=== PATIENT | female | born 1975 | race Caucasian/White ===

== ENCOUNTER → 2018-11-21 12:11 | Outpatient (CLI) | payer BC, SELFPAY ==
[2018-11-21 14:55] LABS: Absolute Lymphocyte Count 2.03 X10^3/uL (0.83-4.51); Absolute Neutrophil Count 3.3 X10^3/uL (2.0-7.7); Basophil# 0.03 X10^3/uL; Basophil% 0.5 % (0-1); Eosinophil# 0.06 X10^3/uL; Hemoglobin 12.1 g/dL (12.0-15.0); Lymphocyte # 2.03 X10^3/ul (4.0); Mean Corp Hgb Conc 32.7 g/dL (32-36); Mean Corpuscular Hgb 29.7 pg (27.0-32.0); Mean Corpuscular Volume 90.7 fL (81-99); Mean Platelet Vol. 10.9 fl (6.2-12.0); Monocyte% 6.9 % (0-10); NRBC Flagged by Analyzer 0 % (0-5); Neutrophil # 3.27 X10^3/uL (2.7-7.7); Neutrophil % 56.4 % (47-70); Platelet Count 342 K/mm3 (150-450); RBC Distribution Width CV 12.4 % (11.6-14.6); RBC Distribution Width SD 41.3 fl (35.1-43.9); Red Blood Count 4.08 M/mm3 (4.2-5.4); White Blood Count 5.8 K/mm3 (4.4-11.0)
[2018-11-21 15:22] LABS: AST(SGOT) 13 U/L (15-37); Alanine Aminotransfer ALT/SGPT 25 U/L (13-56); Albumin, Serum 3.7 g/dL (3.2-5.0); Alkaline Phosphatase 66 U/L (45-117); Anion Gap 5 (5-15); BUN 13 mg/dL (7-18); BUN/Creat Ratio 14.4 RATIO (10-20); Calcium,Total 8.5 mg/dL (8.5-10.1); Chloride 108 mmol/L (98-107); EST Glomerular Filtration Rate 72 mL/min (>60); Est Glom Filt Rate - Afr Amer 87 mL/min (>60); Globulin 3.6 g/dL (2.2-4.2); Glucose 71 mg/dL (74-106); Potassium 3.8 mmol/L (3.5-5.1); Protein, Total 7.3 g/dL (6.4-8.2); Sodium Level 140 mmol/L (136-145); Thyroid Stim Hormone (TSH) 0.81 uIU/mL (0.358-3.74)
== END ==
PROVIDERS: Family Provider Family Medicine; PCP Family Medicine; Referring Provider Family Medicine; Visit Provider Family Medicine
DX: N92.6 Irregular menstruation, unspecified (principal)
CPT/HCPCS: 36415; 80053; 84443; 85025

== ENCOUNTER → 2018-11-26 14:35 | Outpatient (CLI) | payer BC, SELFPAY ==
--- NOTE | 2018-11-26 14:53 | US_ITS ---
STUDY: ULTRASOUND TRANSVAGINAL CLINICAL: Female, 43 years old. Irregular bleeding. TECHNIQUE: Transvaginal COMPARISON: None. FINDINGS: Uterus is anteverted and midline, measuring 8.5 x 5.8 x 7.1 cm There are multiple fibroids. There is a 2 x 1.9 x 1.9 cm fibroid in the right posterior fundus which appears to contact the posterior endometrium. There is a 3.1 x 2.0 x 2.6 cm exophytic fibroid off the left posterior lower uterine wall. There is also a 1.1 x 1.2 x 1.3 cm hypoechoic cysts of the mucosal fibroid in the left anterior fundal wall. Normal endometrial thickness measuring 19 mm. Endometrium is hyperechoic. There is a 0.8 cm diameter mass in the right lower uterine segment. There are no endometrial masses, and there is no fluid in the endometrial cavity. Normal uterine cervix. Normal right ovary, measuring 2.9 x 2.0 x 1.7 cm. There is a 1.5 x 1.3 x 1.4 cm simple cyst versus dominant follicle. Normal left ovary, measuring 2.1 x 1.9 x 1.0 cm. There are multiple follicles without a dominant cyst. There is no free fluid in the pelvis. Polycystic ovary disease: No. US/Transvaginal Non- IMPRESSION: 1. Fibroid uterus. At least 2 of the fibroids appears submucosal. 2. Thickened endometrium with what appears to be a small mass in the lower endometrial cavity. 3. No dominant follicle versus small cyst in the right ovary. The left ovary is unremarkable. Electronically Signed: Alvarado Dixon DO at 16:02 EDT Tel [phone], Service support ,
== END ==
LOC: US 14:37
PROVIDERS: Family Provider Family Medicine; PCP Family Medicine; Referring Provider Family Medicine; Visit Provider Family Medicine
DX: N92.6 Irregular menstruation, unspecified (principal)
CPT/HCPCS: 76830; 93976

== ENCOUNTER → 2020-07-23 | Outpatient (CLI) | payer BC, SELFPAY ==
[2020-07-23 11:16] VITALS: BMI 31.8
[2020-07-28 18:52] LABS: HPV APTIMA, High Risk Negative (Negative)
== END | disposition home or self-care (01) ==
LOC: LABSPEC 12:15
PROVIDERS: PCP Family Medicine; Referring Provider Nurse Practitioner Women's Health; Visit Provider Nurse Practitioner Women's Health
DX: Z12.4 Encounter for screening for malignant neoplasm of cervix (principal)
CPT/HCPCS: 87624; 88175; G0145

== ENCOUNTER → 2020-12-29 17:00 | Outpatient (CLI) | payer BC, SELFPAY ==
[2020-07-23 11:16] VITALS: BMI 31.8
--- NOTE | 2020-12-29 16:30 | BI_ITS ---
MAMMOGRAPHY - BILATERAL SCREENING REASON FOR EXAM: Female, 45 years old. Routine annual screening examination. PERTINENT HISTORY: Non-contributory. TECHNIQUE: Digital bilateral breast carlos (3D mammographic acquisition) in the CC and MLO projections. 2-D mediolateral oblique (MLO) and craniocaudad (CC) views of both breasts were obtained. CAD: Full Field Digital Mammography with Computer Added Detection was performed. COMPARISON: Comparison is made with prior outside examination dated 07/24/2018. FINDINGS: Breast Composition: The breasts are heterogeneously dense, which may obscure small masses. There is a 9 mm x 9 mm well-defined nodule in the upper lateral aspect of the left breast. There is also evidence of a 6.3 mm x 6 mm well-defined nodule in the upper medial aspect of the left breast. Correlation with ultrasound is recommended. Stable small benign-appearing bilateral axillary lymph nodes. No other significant abnormalities are identified. BI/SCRN MAMM (CAD)W/CARLOS BILAT IMPRESSION: There are 2 subcentimeter well-defined nodules in the upper lateral and upper medial aspects of the left breast as described. Correlation with ultrasound is recommended. ASSESSMENT CATEGORY: BIRADS Category 0: Incomplete. Need additional imaging evaluation. A letter regarding these results will be sent to the patient by the facility within 30 days. Approximately 10% of breast cancers are not detected by mammography. A normal mammogram should not delay biopsy of a clinically suspicious abnormality. [id number] Electronically Signed: Jeremi Guidry MD at 8:49 EDT , Service support ,
== END ==
PROVIDERS: PCP Family Medicine; Referring Provider Nurse Practitioner Women's Health; Visit Provider Nurse Practitioner Women's Health
DX: Z12.31 Encounter for screening mammogram for malignant neoplasm of breast (principal)
CPT/HCPCS: 77063; 77067

== ENCOUNTER → 2020-12-31 15:26 | Outpatient (CLI) | payer BC, SELFPAY ==
--- NOTE | 2020-12-31 15:32 | US_ITS ---
STUDY: ULTRASOUND BREAST - LEFT REASON FOR EXAM: Female, 45 years old. Abnormal screening mammogram. TECHNIQUE: Axial and longitudinal images of the LEFT breast were performed with a high resolution ultrasound transducer. # OF IMAGES: 15 COMPARISON: Comparison is made with prior mammogram dated 12/29/2020. FINDINGS: LEFT Breast: There is an 8 mm x 8 mm x 7 mm cyst at the 2 o''clock position the breast at 4 cm from nipple. This also evidence of a 9 mm x 9 mm x 4 mm cyst at the 3 o''clock position of the breast at 4 cm from nipple. US/Breast Limited Unilateral IMPRESSION: The mammographic abnormality corresponds to 2 subcentimeter cysts. ASSESSMENT CATEGORY: BIRADS Category 2: Benign. A letter regarding these results will be sent to the patient by the facility within 30 days. Electronically Signed: Jeremi Guidry MD at 9:40 EDT , Service support ,
== END ==
PROVIDERS: PCP Family Medicine; Referring Provider Nurse Practitioner Women's Health; Visit Provider Nurse Practitioner Women's Health
DX: R92.2 Inconclusive mammogram (principal)
CPT/HCPCS: 76642

== ENCOUNTER → 2021-01-01 14:20 | Outpatient (CLI) | payer BC, SELFPAY ==
[2021-01-01 17:35] LABS: Absolute Neutrophil Count 4.1 X10^3/uL (2.0-7.7); Basophil# 0.03 X10^3/uL; Basophil% 0.4 % (0-1); Eosinophil# 0.06 X10^3/uL; Eosinophils% 0.8 % (0-5); Hematocrit 38.5 % (37-47); Lymphocyte % 35.1 % (19-41); Mean Corp Hgb Conc 33.8 g/dL (32-36); Mean Corpuscular Hgb 30.4 pg (27.0-32.0); Mean Corpuscular Volume 90.2 fL (81-99); Mean Platelet Vol. 10.9 fl (6.2-12.0); Monocyte# 0.43 X10^3/uL; NRBC Flagged by Analyzer 0 % (0-5); Neutrophil % 57.6 % (47-70); Platelet Count 320 K/mm3 (150-450); RBC Distribution Width CV 12.3 % (11.6-14.6); Red Blood Count 4.27 M/mm3 (4.2-5.4); White Blood Count 7.1 K/mm3 (4.4-11.0)
[2021-01-01 17:52] LABS: ALB/GLOB Ratio 1.1 RATIO (0.9-2.4); AST(SGOT) 16 U/L (15-37); Alanine Aminotransfer ALT/SGPT 28 U/L (13-56); Alkaline Phosphatase 64 U/L (45-117); Anion Gap 7 (5-15); BUN 14 mg/dL (7-18); BUN/Creat Ratio 15.7 RATIO (10-20); Calcium,Total 9.3 mg/dL (8.5-10.1); Chloride 104 mmol/L (98-107); Creatinine, Serum 0.89 mg/dL (0.55-1.02); EST Glomerular Filtration Rate 72 mL/min (>60); Est Glom Filt Rate - Afr Amer 88 mL/min (>60); Globulin 3.5 g/dL (2.2-4.2); Glucose 90 mg/dL (74-106); Magnesium 2.1 mg/dL (1.6-2.6); Potassium 3.4 mmol/L (3.5-5.1); Protein, Total 7.5 g/dL (6.4-8.2); Sodium Level 138 mmol/L (136-145); Thyroid Stim Hormone (TSH) 1.04 uIU/mL (0.358-3.74)
== END ==
PROVIDERS: PCP Family Medicine; Referring Provider Family Medicine; Visit Provider Family Medicine
DX: R00.2 Palpitations (principal)
CPT/HCPCS: 36415; 80053; 83735; 84443; 85025

== ENCOUNTER 2021-05-19 09:45 | Outpatient (CLI) | payer BC, SELFPAY ==
--- NOTE | 2021-05-19 09:49 | ECHOD_ITS ---
Reason For Study: PALPITATIONS Procedure This was a 2D Doppler, Color Flow transthoracic echocardiogram. Exam performed in department. Left Ventricle Normal LV size. Left ventricular systolic function is normal. The estimated ejection fraction is 60 %. Normal diastology for age. No regional wall motion abnormalities noted. Right Ventricle Normal RV size. Normal systolic function. Atria Normal left atrium. Normal right atrium. Mitral Valve Normal mitral valve. Tricuspid Valve Normal tricuspid valve. Aortic Valve Normal aortic valve. Trisinus/trileaflet aortic valve. Pulmonic Valve Normal pulmonic valve. Great Vessels Normal aortic root. The pulmonary artery is normal size. Normal inferior vena cava. Pericardium/Pleural No pericardial effusion. MMode/2D Measurements & Calculations LVIDd: 4.9 cm IVSd: 0.94 cm Ao root diam: 3.2 cm LVIDs: 3.2 cm LVPWd: 1.1 cm RVDd: 3.1 cm FS: 35.0 % LAV(MOD-bp): 31.2 ml LVAd ap4: 34.6 cm2 LVAd ap2: 27.4 cm2 LAV(MOD-bp) Indexed: 15.8 ml/m2 LVLd ap4: 9.1 cm LVLd ap2: 7.6 cm LAV(MOD-sp2): 34.8 ml EDV(MOD-sp4): 108.1 ml EDV(MOD-sp2): 81.6 ml LAV(MOD-sp4): 28.3 ml EDV(sp4-el): 111.3 ml EDV(sp2-el): 84.0 ml LVAs ap4: 18.5 cm2 LVAs ap2: 15.4 cm2 LVLs ap4: 7.0 cm LVLs ap2: 6.6 cm ESV(MOD-sp4): 42.0 ml ESV(MOD-sp2): 31.0 ml ESV(sp4-el): 41.6 ml ESV(sp2-el): 30.5 ml EF(MOD-sp4): 61.1 % EF(MOD-sp2): 62.0 % EF(sp4-el): 62.7 % SV(MOD-sp4): 66.1 ml SV(MOD-sp2): 50.6 ml SV(sp4-el): 69.8 ml LA dimension(2D): 3.1 cm LA A4 area: 12.6 cm2 Time Measurements MV dec time: 0.21 sec Doppler Measurements & Calculations MV E max yao: 69.5 cm/sec Lat Peak E' Yao: 7.9 cm/sec Med Peak E' Yao: 8.8 cm/sec MV A max yao: 53.0 cm/sec E/E' lat: 8.8 E/E' med: 7.9 MV E/A: 1.3 Ao V2 max: 103.8 cm/sec LV V1 max: 82.4 cm/sec PA V2 max: 95.2 cm/sec Ao max P.3 mmHg LV V1 max P.7 mmHg ECHO/Echo Complete Interpretation Summary Normal LV size. Left ventricular systolic function is normal. The estimated ejection fraction is 60 %. Structurally normal valves. Ordering Physician: Madeline Christensen Referring Physician: Madeline Christensen Performed By: Marisol Wang, GIANLUCA, RVT
== END 2021-05-19 23:59 | disposition home or self-care (01) ==
LOC: CVS 09:48
PROVIDERS: PCP Family Medicine; Referring Provider Family Medicine; Visit Provider Family Medicine
DX: R00.2 Palpitations (principal)
CPT/HCPCS: 93306

== ENCOUNTER 2021-06-29 11:01 | Outpatient (CLI) | payer BC, SELFPAY | END 2021-06-29 23:59 | disposition home or self-care (01) | LOC: PSN 11:03 | PROVIDERS: PCP Family Medicine; Referring Provider Internal Medicine Cardiovascular Disease; Visit Provider Internal Medicine Cardiovascular Disease | DX: R00.2 Palpitations (principal) | CPT/HCPCS: 93225; 93226 ==

== ENCOUNTER → 2021-10-15 | Outpatient (CLI) | payer BC, SELFPAY ==
--- NOTE | 2021-10-15 16:22 | US_ITS ---
STUDY: ULTRASOUND OF THE FEMALE PELVIS - COMPLETE REASON FOR EXAM: Female, 46 years old. menorrhagia TECHNIQUE: Endovaginal. Transvaginal US was obtained to better visualized the ovaries. COMPARISON: 11.26.18 FINDINGS: The uterus is retroverted and is in a midline position. The uterus measures 9.3 x 4.7 cm. Normal uterine cervix. The endometrium is enlarged in thickness, and is fluid distended. There is demonstrated endometrial mass. This measures 12 x 12 mm. Fibroid uterus. These measure 28 x 31 mm, 19 x 17 mm, 21 x 18 mm, 31 x 30 mm, 18 x 20 mm and 29 x 22 mm. I.U.D. - The patient does not have an I.U.D. The right ovary is visualized. The right ovary measures 4 cm. Cyst measures 23 mm. There is no visualized right adnexal mass or complex lesion. There is normal arterial and normal venous vascularity. The left ovary is visualized. The left ovary measures 2.8 cm. There is no left ovarian cyst or ovarian mass. There is no visualized left adnexal mass or complex lesion. There is normal arterial and normal venous vascularity. There is no fluid in the cul-de-sac. Urinary bladder volume is (in cc) 486. US/Pelvic (Non ) IMPRESSION: Fibroid uterus. There is endometrial mass with diffuse endometrial thickening. Direct visualization is recommended to evaluate the underlying mass. Electronically Signed: Vinh Dee MD at 20:17 EDT ,
--- NOTE | 2021-10-15 16:22 | US_ITS ---
STUDY: ULTRASOUND OF THE FEMALE PELVIS - COMPLETE REASON FOR EXAM: Female, 46 years old. menorrhagia TECHNIQUE: Endovaginal. Transvaginal US was obtained to better visualized the ovaries. COMPARISON: 11.26.18 FINDINGS: The uterus is retroverted and is in a midline position. The uterus measures 9.3 x 4.7 cm. Normal uterine cervix. The endometrium is enlarged in thickness, and is fluid distended. There is demonstrated endometrial mass. This measures 12 x 12 mm. Fibroid uterus. These measure 28 x 31 mm, 19 x 17 mm, 21 x 18 mm, 31 x 30 mm, 18 x 20 mm and 29 x 22 mm. I.U.D. - The patient does not have an I.U.D. The right ovary is visualized. The right ovary measures 4 cm. Cyst measures 23 mm. There is no visualized right adnexal mass or complex lesion. There is normal arterial and normal venous vascularity. The left ovary is visualized. The left ovary measures 2.8 cm. There is no left ovarian cyst or ovarian mass. There is no visualized left adnexal mass or complex lesion. There is normal arterial and normal venous vascularity. There is no fluid in the cul-de-sac. Urinary bladder volume is (in cc) 486. US/Transvaginal Non- IMPRESSION: Fibroid uterus. There is endometrial mass with diffuse endometrial thickening. Direct visualization is recommended to evaluate the underlying mass. Electronically Signed: Vinh Dee MD at 20:17 EDT ,
== END | disposition home or self-care (01) ==
LOC: US 16:20
PROVIDERS: PCP Family Medicine; Referring Provider Nurse Practitioner Women's Health; Visit Provider Nurse Practitioner Women's Health
DX: D25.9 Leiomyoma of uterus, unspecified (principal); N92.1 Excessive and frequent menstruation with irregular cycle
CPT/HCPCS: 76830; 76856

== ENCOUNTER → 2021-10-20 | Outpatient (CLI) | payer BC, SELFPAY ==
--- NOTE | 2021-10-20 13:15 | EMB_PTH ---
PATIENT: PETER SERRANO LOC: [facility] U#:[id number] AGE/SX: 46/F ROOM: RE10/20/[address]: AUBREY Oglesby : 1975 BED: DIS: 10/20/2021 SPEC #: [id number] RECD: 10/20/21 14:50 STATUS: NADEEM JENNIFER #: [id number] JIMBO: 10/20/21 13:[address]: Arabella Vail NP DEPT: SURGICAL PATHOLOGY RECD BY: Trina Maloney ENTERED: 10/21/21 07:46 SP TYPE: ENDOM BX/C MARK DR: Madeline Christensen MD Tissues: Endometrium, NOS Procedures: Surgery Specimen Level IV HEADER OPERATION: Endometrial biopsy PRE-OP DIAGNOSIS: Abnormal uterine bleeding TISSUE SUBMITTED: Endometrial biopsy MICROSCOPIC DIAGNOSIS Endometrial biopsy: Superficial fragments of benign endometrial tissue and blood clots. See comment. LINDA:mark 10/22/2021 COMMENT The specimen predominantly consists of blood clots with scant fragments of superficial benign endometrial tissue. Clinical correlation and appropriate follow up are necessary. Re-biopsy is suggested if clinically indicated. MICROSCOPIC DESCRIPTION Slides are reviewed. GROSS DESCRIPTION Received is one container labeled with the patient's name and not further designated. The specimen consists of multiple fragments of blood clot mixed with hemorrhagic soft tissue that in aggregate measure 5 x 3 x 1 cm. The entire specimen is submitted in six cassettes. / SJ:rg 10/21/2021 TC:5 CPT: 40234
== END | disposition home or self-care (01) ==
PROVIDERS: PCP Family Medicine; Referring Provider Nurse Practitioner Women's Health; Visit Provider Nurse Practitioner Women's Health
DX: N93.9 Abnormal uterine and vaginal bleeding, unspecified (principal)
CPT/HCPCS: 88305

== ENCOUNTER → 2021-12-30 | Outpatient (CLI) | payer BC, SELFPAY ==
--- NOTE | 2021-12-30 16:11 | BI_ITS ---
MAMMOGRAPHY - BILATERAL SCREENING 3-D TOMOSYNTHESIS REASON FOR EXAM: Female, 46 years old. Routine screening PERTINENT HISTORY: No significant family history. TECHNIQUE: 2-D mammograms and 3-D Tomosynthesis of the breast (s) were performed. CAD was performed. COMPARISON: 12/29/2020 FINDINGS: The breast composition is heterogeneously dense that can obscure small breast masses. Scattered benign calcifications are seen. No dense spiculated masses or suspicious microcalcifications are identified. No architectural distortion is identified. There is no skin thickening or retraction. However, there has been an increase in density in the upper-outer quadrant of the left breast when compared to the previous study and further evaluation of the upper outer quadrant with ultrasound is recommended. The right breast is free of mammographic abnormality or significant change BI/SCRN MAMM (CAD)W/CARLOS BILAT IMPRESSION: Subtle change in density in the upper-outer quadrant of the left breast with increase in size of a previous noted nodule. Further evaluation with ultrasound recommended ASSESSMENT CATEGORY: BIRADS Category 0: Incomplete. Need additional imaging evaluation as above. A letter regarding these results will be sent to the patient by the facility within 30 days. FOLLOW UP RECOMMENDATION: Ultrasound Recommended. (I) Approximately 10% of breast cancers are not detected by mammography. A normal mammogram should not delay biopsy of a clinically suspicious abnormality. Electronically Signed: Faisal Tang MD at 7:57 EDT ,
== END | disposition home or self-care (01) ==
LOC: OPBI 16:10
PROVIDERS: PCP Family Medicine; Visit Provider Nurse Practitioner Women's Health
DX: Z12.31 Encounter for screening mammogram for malignant neoplasm of breast (principal)
CPT/HCPCS: 77063; 77067

== ENCOUNTER → 2022-01-06 | Outpatient (CLI) | payer BC, SELFPAY ==
--- NOTE | 2022-01-06 15:02 | US_ITS ---
STUDY: ULTRASOUND BREAST - LEFT REASON FOR EXAM: Female, 46 years old. Abnormal screening mammogram. TECHNIQUE: Axial and longitudinal images of the LEFT breast were performed with a high resolution ultrasound transducer. # OF IMAGES: 50 COMPARISON: Comparison is made with prior mammogram dated 12/30/2021 and prior sonogram of the left breast dated 12/31/2020. FINDINGS: LEFT Breast: The lateral aspect of the left breast was examined by ultrasound. Multiple cysts are seen. The largest cyst is at the 3 o''clock position of the breast at 5 sinuses from nipple. It measures 1.2 sides by 1.3 cm x 0.8 cm. US/Breast Limited Unilateral IMPRESSION: Multiple cysts are seen in the lateral aspect of the left breast. ASSESSMENT CATEGORY: BIRADS Category 2: Benign. A letter regarding these results will be sent to the patient by the facility within 30 days. Electronically Signed: Jeremi Guidry MD at 10:16 EDT ,
== END | disposition home or self-care (01) ==
LOC: OPUS 15:00
PROVIDERS: PCP Family Medicine; Visit Provider Nurse Practitioner Women's Health
DX: R92.8 Other abnormal and inconclusive findings on diagnostic imaging of breast (principal); N60.02 Solitary cyst of left breast
CPT/HCPCS: 76642

== ENCOUNTER 2022-02-22 14:25 | Day surgery (SDC) | payer BC, SELFPAY ==
[2022-02-22] VITALS (9 sets, daily range): BP systolic 116–149; BP diastolic 75–95; PULSE 48–100; RESP 16–18; TEMP 36.5–36.6; O2SAT 95–100; BMI 31.6
[2022-02-22 14:58] LABS: Internal QC Validated? YES +Cl - CLEAR BKGD; Pregnancy, Urine Negative Negative
[2022-02-22] MEDS: Lactated Ringers 1,000 ML 15 ML IV ×2 (15:03→17:01)
[2022-02-22 15:10] LABS: Absolute Lymphocyte Count 2.43 X10^3/uL (0.83-4.51); Absolute Neutrophil Count 4.5 X10^3/uL (2.0-7.7); Basophil# 0.03 X10^3/uL; Basophil% 0.4 % (0-1); Eosinophil# 0.08 X10^3/uL; Eosinophils% 1.1 % (0-5); Hemoglobin 14.1 g/dL (12.0-15.0); Lymphocyte # 2.43 X10^3/ul (0.83-4.51); Lymphocyte % 32.4 % (19-41); Mean Corp Hgb Conc 34.4 g/dL (32-36); Mean Corpuscular Hgb 30.9 pg (27.0-32.0); Mean Corpuscular Volume 89.7 fL (81-99); Mean Platelet Vol. 10.2 fl (6.2-12.0); Monocyte# 0.46 X10^3/uL; Monocyte% 6.1 % (0-10); NRBC Flagged by Analyzer 0 % (0-5); Neutrophil # 4.48 X10^3/uL (2.7-7.7); Neutrophil % 59.7 % (47-70); Platelet Count 377 K/mm3 (150-450); RBC Distribution Width CV 12.4 % (11.6-14.6); RBC Distribution Width SD 40.6 fl (35.1-43.9); Red Blood Count 4.57 M/mm3 (4.2-5.4); White Blood Count 7.5 K/mm3 (4.4-11.0)
--- NOTE | 2022-02-22 15:38 | PCM.HP.BLA ---
History and Physical Date of Admission: 02/22/22 Intake Visit Reasons:?D&C Chief Complaint: pre op D&C Financial Accountant Required: No Is patient in pain?: No Allergies No Known Allergies Allergy (Verified 02/15/22 09:58) Medications multivitamin,[id number] (Complete Multivitamin tablet) 1 tab PO DAILY 12/14/18 [History Confirmed 02/17/22] norgestimate 0.25 mg-ethinyl estradiol 35 mcg tablet (Sprintec (28)) 1 tab PO DAILY #84 tabs 10/05/21 [Rx Confirmed 02/17/22] Is last menstrual period known: No Post menopausal: No Patient : No : No PFSH Medical History Abnormal Pap smear of cervix Cardiology follow-up encounter History of echocardiogram History of stress test Non-smoker Surgical History? History of appendectomy Family History? Mother Hypertension Kidney disease Heart disease ?? ? PPM DiabetesFather Diabetes Myocardial infarction,? Onset Age: 64 Cancer Heart disease ?? ? ICD/AFIB CAD (coronary artery disease),? Onset Age: 64 ?? ? mounika stentsGrandmother Bowel cancer HypertensionGrandfather Lung cancer Heart disease Social History? Smoking Status:? Never smoker alcohol intake:? current alcohol intake frequency: holidays/special occasions only substance use type:? does not use caffeine:? Yes what type of physical activity do you participate in:? none seatbelt use:? always do you feel safe at home:? Yes additional social history:? 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 D&C Details: PETER SERRANO is a 46 year old who presents for preop appointment AUB and fibroids smaller than 3 cm, decision for symphion d and c hysteroscopy. Female Reproductive History Cycle Length: 21-35 Bleeding Duration: 5 Questions: metorrhagia: No, sexually active: Yes, dyspareunia: No and PCB: No Menopausal Symptoms: No hot flashes, No night sweats, No weight change, No mood changes, No difficulty concentrating, No sleep problems and No change in libido History ? ? ? 2 ? Elective abortions ? Hx Para ? ? ? 2 ? Spontaneous abortions ? Hx # Term Pregnancies ? Ectopic pregnancies ? Hx # Pregnancies ? Multiple births ? # of living children ? Past Pregnancies Del. Date Name GA/Weeks Outcome Route Bth Weight [facility] F[facility] Unknown Miguel Angel-1997 ? Unknown Ayesha-1999 ? ROS Const Constitutional: Denies fatigue, night sweats, weight gain or weight loss ENT ENT: Reports system reviewed and no additional complaints, except as documented Cardio Card: Denies chest pain Resp Resp: Denies cough or dyspnea GI GI: Reports as per HPI; Denies constipation, nausea or vomiting : Reports as per HPI; Denies hot flashes, nipple discharge, vaginal discharge, vaginal dryness, vaginal odor or vaginal pruritus Musc Musc: Denies arthralgias, back pain or muscle weakness Skin Skin/Breast: Denies alopecia, change in hair, dry skin, breast mass, breast pain, breast skin changes or nipple discharge Neuro Neuro: Reports system reviewed and no additional complaints, except as documented Psych Psych: Reports system reviewed and no additional complaints, except as documented; Denies change in libido or difficulty concentrating Endo Endo: Denies cold intolerance, excessive sweating, heat intolerance or polydipsia Frederick/Lymph Hematologic/Lymphatic: Denies easy bleeding, Denies easy bruising and Denies lymphadenopathy Exam Const General: cooperative, healthy appearing, comfortable, no acute distress and well developed Orientation: alert [facility] Head: normal to inspection and normocephalic Ears: hearing grossly normal bilaterally and external ears normal Nose: external nose normal and nares normal Face and sinus: normal facial exam Neck Neck: normal visual inspection and no lymphadenopathy Thyroid: thyroid normal Chest Chest palpation & inspection: normal inspection of the chest Resp Effort & Inspection: normal respiratory effort Auscultation: clear to auscultation bilaterally Cardio Rate: regular rate Rhythm: regular rhythm Heart Sounds: S1 normal and S2 normal GI Inspection: normal to inspection and non-distended Palpation: soft and no hepatosplenomegaly Musc Other: gross motor intact no deficits, full bilateral strength Skin General: no rashes or lesions noted Neuro General: patient alert, patient awake, moves all extremities and no focal motor deficits Motor: muscle tone normal throughout Extrem General: normal to inspection and no pedal edema Psych Appearance: grossly normal Mental Status: mental status grossly normal Affect: normal affect Speech and Movement: speech and movement normal Coding Level of Care Code No Charge Diagnoses Menorrhagia with irregular cycle? N92.1 Uterine fibroid? D25.1 ? ? ? Uterine leiomyoma location: intramural, submucous, and subserous Uterine mass? N85.8 Assessment and Plan Assessment and Plan (1) Menorrhagia with irregular cycle: ?Status:?Acute ?Comment: EMB mostly blood. Needs hysteroscopy D&C, symphion. Considering myfembree/oriahn vs LAVH (2) Uterine fibroid: ?Status:?Acute ?Qualifiers: ?Uterine leiomyoma location:?intramural, submucous, and subserous? Qualified Code(s):?D25.1 - Intramural leiomyoma of uterus ?Comment: Repeat US (3) Uterine mass: ?Status:?Acute ?Comment: probable polyp Plan After discussing the patient's diagnosis and treatment plan options, patient wishes to proceed with surgical management.? I have discussed with the patient the risks, benefits, and alternatives of the procedure which include but are not limited to risks of anesthesia, bleeding, infection, possible damage to bowel, bladder, or surrounding vasculature which could lead to additional surgery to evaluate any complications.? Patient agrees to procedure and wishes to proceed.? ACOG/uptodate references given for additional information regarding procedure.? UPDATE- I have seen the patient and performed any clinically relevant updates to the history and physical exam. Aydee Parrish MD Assessment & Plan Assessment/Plan (1) Menorrhagia with irregular cycle:
--- NOTE | 2022-02-22 16:00 | EMB_PTH ---
PATIENT: PETER SERRAN[place] [facility] [place][id number] AGE/SX: 46/F ROOM: RE02/22/[address]: Dr. Aydee Parrish MD : 1975 BED: DIS: 02/22/2022 SPEC #: [id number] RECD: 02/23/22 09:05 STATUS: NADEEM JENNIFER #: [id number] JIMBO: 02/22/22 16:[address]: Aydee Parrish DEPT: SURGICAL PATHOLOGY RECD BY: Medardo Fernandez ENTERED: 02/23/22 10:37 SP TYPE: ENDOM BX/C MARK DR: Madeline Christensen MD Tissues: Endometrium, NOS Procedures: Surgery Specimen Level IV HEADER OPERATION: Hysteroscopy, D & C Symphion, myomectomy PRE-OP DIAGNOSIS: Menorrhagia with irregular cycle TISSUE SUBMITTED: Fibroid tissue, endometrial curettings MICROSCOPIC DIAGNOSIS Fibroid tissue, endometrial curettings: Proliferative endometrium. Fragments of myometrium consistent with leiomyoma. See comment. LINDA:mark 02/24/2022 COMMENT The specimen predominantly consists of fragments of leiomyoma. Please make reference to previous specimen ([id number]) endometrial biopsy with diagnosis of ?superficial fragments of benign endometrial tissue and blood clots.? MICROSCOPIC DESCRIPTION Slides are reviewed. GROSS DESCRIPTION Received in fixative is one container labeled with the patient's name and designated fibroid tissue, endometrial curettings. The specimen consists of multiple fragments of foss hemorrhagic soft tissue that in aggregate measure 5 x 3 x 0.3 cm. The entire specimen is submitted in two cassettes. / LINDA:mark 02/23/2022 TC:1 CPT: 59375
[2022-02-22] MEDS: Lidocaine 1% (20 ml mdv) 20 ML Vial (16:30)
[2022-02-22] MEDS: FERRIC SUBSULFATE 8 GM SOLN (16:40)
--- NOTE | 2022-02-22 16:43 | PCM.OPRPT ---
Problems Associated Problem List Diagnoses (1) Uterine fibroid: (2) Menorrhagia with irregular cycle: Report of Operation Date of Procedure: 02/22/22 Pre-Operative Diagnosis: see problem list Post-Operative Diagnosis: same Surgery/Procedure Performed:: hysteroscopic myomectomies Description of Surgical Findings:: multiple leiomyomas local delivery driver: None Type of Anesthesia: Local MAC Special Medications: none Specimen's removed: EMC, fibroids Drains: none Estimated Blood Loss (mL): 200 Fluids Replaced: crystalloid 1000L 2450 deficit. Description of Procedure: Patient was prepped and draped in a normal sterile fashion under MAC anesthesia. A weighted speculum was placed in the vagina and the anterior lip of the cervix was grasped with a single-tooth tenaculum. A paracervical block was placed with 1% lidocaine. Cervix was progressively dilated to allow passage of a 5 mm hysteroscope. The lining was fully visualized and noted to have multiple leiomyomas . Uterine sounded to 10 cm. Using the symphion device, the fibroids were progressively removed without complications. three were removed and then two were still seen and unable to be removed due to fluid deficit. Direct visual curettage was performed using the device , and all specimens were sent to pathology. part of the fibroids were unable to be removed due to fluid deficit and couldn't be grabbed safely to be removed. floseal placed in the uterus and TXA ordered, monsels paste on the cervix for ectropion. All instruments were removed from the vagina and excellent hemostasis was noted. Patient was awoken and taken to recovery in stable condition. Grafts/Implants Used: none Complications none Admit VTE Documentation VTE Present on Admission: No VTE Mechan Device Prophylaxis: SCD's Multi Select Codes Urinary/Genital Urinary/Genital CPT Codes: 49903 Hysteroscopic myomectomy
--- NOTE | 2022-02-22 16:48 | DCINST_ITS ---
Discharge Instructions Procedure D&C Diet Discharge Diet: No restrictions Activity Discharge Activity: Return to Normal Activity, May Shower and May Take a Tub Bath (after 1 week) May resume sexual activity in: 1-2 weeks Weight Bearing Status: Weight bearing as tolerated Lifting Restrictions: none Dressing / Incision Call your doctor if you observe: Fever of 101 or Higher, Using more than 1 pad per hour, Shortness of breath and Uncontrolled pain Follow Up Care Please Follow Up With: Aydee Parrish MD When: Call [phone] to schedule appointment. Test Results: Test results from this visit will be discussed in further detail at your follow- up appointment, if applicable. Discharge Plan Admission Primary Reason for Your Visit: hysteroscopic myomectomies Attending Provider: Aydee Parrish Primary Care Provider: Madeline Christensen Discharge Orders/Prescriptions Prescriptions: New doxycycline monohydrate 100 mg capsule 100 mg PO BID Qty: 20 0RF No Action Complete Multivitamin Tablet 1 tab PO DAILY norgestimate-ethinyl estradiol [Sprintec (28)] 0.25-35 mg-mcg tablet 1 tab PO DAILY Qty: 84 1RF Referrals / Follow Up: Madeline Christensen MD [Primary Care Provider] - Disposition Disposition (needs filled in before D/C Order can be placed): Home, Self Care
--- NOTE | 2022-03-22 13:24 | PCM.HP.BLA ---
History and Physical Intake Vital Signs ? 02/18/2216:07 02/18/2216:07 Height 5 ft 6 in 5 ft 6 in Weight: 152 lb ? BMI 24.5 ? BP 148/86 H ? Intake Visit Reasons:?D&C Chief Complaint: pre op D&C Campus Rep Required: No Is patient in pain?: No Allergies No Known Allergies Allergy (Verified 02/15/22 09:58) Medications multivitamin,[id number] (Complete Multivitamin tablet) 1 tab PO DAILY 12/14/18 [History Confirmed 02/17/22] norgestimate 0.25 mg-ethinyl estradiol 35 mcg tablet (Sprintec (28)) 1 tab PO DAILY #84 tabs 10/05/21 [Rx Confirmed 02/17/22] Is last menstrual period known: No Post menopausal: No Patient : No : No PFSH Medical History Abnormal Pap smear of cervix Cardiology follow-up encounter History of echocardiogram History of stress test Non-smoker Surgical History? History of appendectomy Family History? Mother Hypertension Kidney disease Heart disease ?? ? PPM DiabetesFather Diabetes Myocardial infarction,? Onset Age: 64 Cancer Heart disease ?? ? ICD/AFIB CAD (coronary artery disease),? Onset Age: 64 ?? ? mounika stentsGrandmother Bowel cancer HypertensionGrandfather Lung cancer Heart disease Social History? Smoking Status:? Never smoker alcohol intake:? current alcohol intake frequency: holidays/special occasions only substance use type:? does not use caffeine:? Yes what type of physical activity do you participate in:? none seatbelt use:? always do you feel safe at home:? Yes additional social history:? 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 Female Reproductive History Cycle Length: 21-35 Bleeding Duration: 5 Questions: metorrhagia: No, sexually active: Yes, dyspareunia: No and PCB: No Menopausal Symptoms: No hot flashes, No night sweats, No weight change, No mood changes, No difficulty concentrating, No sleep problems and No change in libido History ? ? ? 2 ? Elective abortions ? Hx Para ? ? ? 2 ? Spontaneous abortions ? Hx # Term Pregnancies ? Ectopic pregnancies ? Hx # Pregnancies ? Multiple births ? # of living children ? Past Pregnancies Del. Date Name GA/Weeks Outcome Route Bth Weight Gen Labor Lgth Anesthesia Del Locatn Provider FOB Unknown Miguel Angel-1997 ? Unknown Ayesha-1999 ? ROS Const Constitutional: Denies fatigue, night sweats, weight gain or weight loss ENT ENT: Reports system reviewed and no additional complaints, except as documented Cardio Card: Denies chest pain Resp Resp: Denies cough or dyspnea GI GI: Reports as per HPI; Denies constipation, nausea or vomiting : Reports as per HPI; Denies hot flashes, nipple discharge, vaginal discharge, vaginal dryness, vaginal odor or vaginal pruritus Musc Musc: Denies arthralgias, back pain or muscle weakness Skin Skin/Breast: Denies alopecia, change in hair, dry skin, breast mass, breast pain, breast skin changes or nipple discharge Neuro Neuro: Reports system reviewed and no additional complaints, except as documented Psych Psych: Reports system reviewed and no additional complaints, except as documented; Denies change in libido or difficulty concentrating Endo Endo: Denies cold intolerance, excessive sweating, heat intolerance or polydipsia Frederick/Lymph Hematologic/Lymphatic: Denies easy bleeding, Denies easy bruising and Denies lymphadenopathy Exam Const General: cooperative, healthy appearing, comfortable, no acute distress and well developed Orientation: alert [facility] Head: normal to inspection and normocephalic Ears: hearing grossly normal bilaterally and external ears normal Nose: external nose normal and nares normal Face and sinus: normal facial exam Neck Neck: normal visual inspection and no lymphadenopathy Thyroid: thyroid normal Chest Chest palpation & inspection: normal inspection of the chest Resp Effort & Inspection: normal respiratory effort Auscultation: clear to auscultation bilaterally Cardio Rate: regular rate Rhythm: regular rhythm Heart Sounds: S1 normal and S2 normal GI Inspection: normal to inspection and non-distended Palpation: soft and no hepatosplenomegaly Musc Other: gross motor intact no deficits, full bilateral strength Skin General: no rashes or lesions noted Neuro General: patient alert, patient awake, moves all extremities and no focal motor deficits Motor: muscle tone normal throughout Extrem General: normal to inspection and no pedal edema Psych Appearance: grossly normal Mental Status: mental status grossly normal Affect: normal affect Speech and Movement: speech and movement normal Coding Level of Care Code No Charge Diagnoses Menorrhagia with irregular cycle? N92.1 Uterine fibroid? D25.1 ? ? ? Uterine leiomyoma location: intramural, submucous, and subserous Uterine mass? N85.8 Assessment and Plan Assessment and Plan (1) Menorrhagia with irregular cycle: ?Status:?Acute ?Comment: EMB mostly blood. Needs hysteroscopy D&C, symphion. Considering myfembree/oriahn vs LAVH (2) Uterine fibroid: ?Status:?Acute ?Qualifiers: ?Uterine leiomyoma location:?intramural, submucous, and subserous? Qualified Code(s):?D25.1 - Intramural leiomyoma of uterus ?Comment: Repeat US (3) Uterine mass: ?Status:?Acute ?Comment: probable polyp Plan After discussing the patient's diagnosis and treatment plan options, patient wishes to proceed with surgical management.? I have discussed with the patient the risks, benefits, and alternatives of the procedure which include but are not limited to risks of anesthesia, bleeding, infection, possible damage to bowel, bladder, or surrounding vasculature which could lead to additional surgery to evaluate any complications.? Patient agrees to procedure and wishes to proceed.? ACOG/uptodate references given for additional information regarding procedure.? UPDATE- I have seen the patient and performed any clinically relevant updates to the history and physical exam. Aydee Parrish MD
== END 2022-02-22 19:07 | disposition home or self-care (01) ==
LOC: SDC 14:27 → AC 14:28
PROVIDERS: PCP Family Medicine; Referring Provider Obstetrics & Gynecology; Visit Provider Obstetrics & Gynecology
PROC: 0UB98ZZ Excision of Uterus, Via Natural or Artificial Opening Endoscopic (ICD-10-PCS; CPT 58558; principal; 2022-02-22 15:45)
DX: D25.1 Intramural leiomyoma of uterus (principal); N92.1 Excessive and frequent menstruation with irregular cycle; N85.8 Other specified noninflammatory disorders of uterus; N93.9 Abnormal uterine and vaginal bleeding, unspecified
CPT/HCPCS: 58561; 00952; 81025; 85025; 86850; 86900; 86901; 88305; J7120; J2405

== ENCOUNTER → 2022-04-12 | Outpatient (CLI) | payer BC, SELFPAY ==
[2022-04-12 18:38] LABS: Cholesterol 245 mg/dL (200); High Density Lipoprotein 65 mg/dL; Thyroid Stim Hormone (TSH) 0.85 uIU/mL (0.358-3.74); Triglycerides 159 mg/dL; Very Low Density Lipoprotein 32 mg/dL (5-40)
== END | disposition home or self-care (01) ==
LOC: MFPLAB 16:05
PROVIDERS: PCP Family Medicine; Referring Provider Family Medicine; Visit Provider Family Medicine
DX: Z00.00 Encounter for general adult medical examination without abnormal findings (principal)
CPT/HCPCS: 36415; 80061; 84443

== ENCOUNTER → 2022-10-10 | Outpatient (CLI) | payer BC, SELFPAY ==
--- NOTE | 2022-10-10 13:00 | CT_ITS ---
STUDY: CT ABDOMEN AND PELVIS WITH CONTRAST REASON FOR EXAM: Female, 47 years old. Left lower quadrant pain. RADIATION DOSAGE (If Supplied By Facility): CTDIvol = ( 15.29 ) mGy, DLP = ( 969.15 ) mGycm TECHNIQUE: Transaxial images were obtained from the dome of the diaphragm to the symphysis pubis without oral contrast. IV 100mL Isovue-300 was administered. Sagittal and coronal images were reconstructed. Individualized dose optimization techniques were used for this CT. COMPARISON: None. FINDINGS: The visualized lung bases are unremarkable. The visualized portions of the heart are within normal limits. There is a 7 mm cyst in the dome of the right lobe of the liver. Small cysts are also seen in the inferior aspect of the right lobe of the liver. Normal gallbladder and extrahepatic biliary system. Normal spleen. Normal pancreas. Normal bilateral adrenal glands. Normal right kidney. Normal left kidney. Normal visualized stomach. Normal small intestine. There is diverticulosis, with thickening of the colon wall, and pericolonic inflammation changes consistent with acute diverticulitis. Prior appendectomy. Normal abdominal aorta. Normal inferior vena cava. There is borderline retroperitoneal lymphadenopathy with enlarged nodes no greater than 10mm in the short axis diameter. Normal urinary bladder. Enlarged fibroid uterus. Prominent left periuterine venous structures. Normal abdominal wall. Normal osseous structures. CT/Abdomen/Pelvis W IV Cont ONLY IMPRESSION: Increased markings and thickening of the distal descending colon and sigmoid colon in keeping with the known complicated acute sigmoid diverticulitis. Enlarged fibroid uterus with prominence of the left periuterine venous structures. Electronically Signed: Jeremi Guidry MD at 14:11 EDT ,
== END | disposition home or self-care (01) ==
LOC: CT 12:59
PROVIDERS: PCP Family Medicine; Referring Provider Family Medicine; Visit Provider Family Medicine
DX: R10.9 Unspecified abdominal pain (principal)
CPT/HCPCS: 74177; Q9967

== ENCOUNTER → 2023-04-18 | Outpatient (CLI) | payer BC, SELFPAY ==
[2023-04-18 13:08] LABS: Cholesterol 233 mg/dL (200); High Density Lipoprotein 64 mg/dL; Triglycerides 92 mg/dL; Very Low Density Lipoprotein 18 mg/dL (5-40)
[2023-04-18 14:00] LABS: Hemoglobin A1c 5.2 % (3.8-5.6)
== END | disposition home or self-care (01) ==
LOC: MFPLAB 10:13
PROVIDERS: PCP Family Medicine; Visit Provider Family Medicine
DX: Z00.00 Encounter for general adult medical examination without abnormal findings (principal); E66.01 Morbid (severe) obesity due to excess calories
CPT/HCPCS: 36415; 80061; 83036

== ENCOUNTER → 2023-07-05 | Outpatient (CLI) | payer BC, SELFPAY ==
[2023-07-05 10:56] LABS: AST(SGOT) 23 U/L (15-37); Alanine Aminotransfer ALT/SGPT 36 U/L (13-56); Cholesterol 149 mg/dL (200); High Density Lipoprotein 62 mg/dL; Triglycerides 55 mg/dL; Very Low Density Lipoprotein 11 mg/dL (5-40)
== END | disposition home or self-care (01) ==
LOC: MFPLAB 09:16
PROVIDERS: PCP Family Medicine; Visit Provider Family Medicine
DX: E78.00 Pure hypercholesterolemia, unspecified (principal)
CPT/HCPCS: 36415; 80061; 84450; 84460

== ENCOUNTER → 2023-10-05 | Outpatient (CLI) | payer BC, SELFPAY ==
--- NOTE | 2023-10-05 16:24 | BI_ITS ---
MAMMOGRAPHY - BILATERAL SCREENING REASON FOR EXAM: Female, 48 years old. Routine annual screening examination. PERTINENT HISTORY: Non-contributory. TECHNIQUE: Digital bilateral breast carlos (3D mammographic acquisition) in the CC and MLO projections. 2-D mediolateral oblique (MLO) and craniocaudad (CC) views of both breasts were obtained. CAD: Full Field Digital Mammography with Computer Added Detection was performed. COMPARISON: Comparison is made with prior study December 30, 2021 and December 29, 2020. FINDINGS: Breast Composition: The breasts are heterogeneously dense, which may obscure small masses. There are no dominant masses or suspicious calcifications. Stable small benign-appearing bilateral axillary lymph nodes. No other significant abnormalities are identified. There has been no significant change since the prior study. BI/SCRN MAMM (CAD)W/CARLOS BILAT IMPRESSION: Stable bilateral screening mammogram. Yearly follow-up mammogram recommended. (A) ASSESSMENT CATEGORY: BIRADS Category 2: Benign. A letter regarding these results will be sent to the patient by the facility within 30 days. Approximately 10% of breast cancers are not detected by mammography. A normal mammogram should not delay biopsy of a clinically suspicious abnormality. [id number] Electronically Signed: Jeremi Guidry MD at 8:22 EDT ,
== END | disposition home or self-care (01) ==
LOC: OPBI 16:24
PROVIDERS: PCP Family Medicine; Referring Provider Nurse Practitioner Women's Health; Visit Provider Nurse Practitioner Women's Health
DX: Z12.31 Encounter for screening mammogram for malignant neoplasm of breast (principal)
CPT/HCPCS: 77063; 77067

== ENCOUNTER → 2024-03-27 | Outpatient (CLI) | payer BC, SELFPAY ==
--- NOTE | 2024-03-27 15:20 | US_ITS ---
EXAM: US PELVIS TRANSABDOMINAL AND TRANSVAGINAL, COMPLETE CLINICAL INDICATION: abnormal bleeding TECHNIQUE: Transabdominal and transvaginal pelvic ultrasound was performed with grayscale and color Doppler imaging. Transvaginal imaging was used for better evaluation of the endometrium and adnexa. COMPARISON: 10/15/[address] abdomen and pelvis, 10/10/2022. FINDINGS: UTERUS/CERVIX: There are multiple intramural and subserosal fibroids throughout the uterus, the largest measuring up to 3.7 cm. Retroverted uterus. Echogenic focus within the endometrium measuring approximately 1.3 cm, perhaps a polyp or submucosal fibroid. The uterus measures 10.2 x 10.3 x 5.6 cm. The endometrial stripe measures 0.6 cm in thickness. RIGHT OVARY: The right ovary is not visualized possibly secondary to bowel gas. LEFT OVARY: The left ovary is not visualized possibly secondary to bowel gas. FREE FLUID: None. BLADDER: Normal as visualized. Wall is normal thickness for degree of distention. US/Pelvic w/ Transvaginal IMPRESSION: 1. There are multiple intramural and subserosal fibroids throughout the uterus, the largest measuring up to 3.7 cm. 2. Echogenic focus within the endometrium measuring approximately 1.3 cm, perhaps a polyp or submucosal fibroid. Electronically Signed: Isrrael Shah DO at 23:14 EST ,
== END | disposition home or self-care (01) ==
LOC: US 15:19
PROVIDERS: PCP Family Medicine; Referring Provider Nurse Practitioner Women's Health; Visit Provider Nurse Practitioner Women's Health
DX: N92.1 Excessive and frequent menstruation with irregular cycle (principal)
CPT/HCPCS: 76830; 76856

== ENCOUNTER → 2024-04-09 | Outpatient (CLI) | payer BC, SELFPAY ==
[2024-04-09 16:46] LABS: Estradiol < 11.0 pg/mL; Follicle Stimulating Hormone 45.2 mIU/mL
== END | disposition home or self-care (01) ==
LOC: BWCLAB 13:30
PROVIDERS: PCP Family Medicine; Referring Provider Nurse Practitioner Women's Health; Visit Provider Nurse Practitioner Women's Health
DX: R23.2 Flushing (principal)
CPT/HCPCS: 36415; 82670; 83001

== ENCOUNTER → 2024-05-07 | Outpatient (CLI) | payer BC, SELFPAY ==
[2024-05-08 04:55] LABS: AST(SGOT) 50 U/L (<=31); Alanine Aminotransfer ALT/SGPT 81 U/L (<=34); Cholesterol 169 mg/dL (<=200); High Density Lipoprotein 62 mg/dL; Triglycerides 98 mg/dL; Very Low Density Lipoprotein 20 mg/dL (5-40)
== END | disposition home or self-care (01) ==
LOC: MFPLAB 12:15
PROVIDERS: PCP Family Medicine; Referring Provider Family Medicine; Visit Provider Family Medicine
DX: E78.00 Pure hypercholesterolemia, unspecified (principal)
CPT/HCPCS: 36415; 80061; 84450; 84460

== ENCOUNTER → 2024-06-28 | Outpatient (CLI) | payer BC, SELFPAY ==
[2024-06-28 13:21] LABS: AST(SGOT) 22 U/L (<=31); Alanine Aminotransfer ALT/SGPT 27 U/L (<=34); Cholesterol 142 mg/dL (<=200); High Density Lipoprotein 56 mg/dL; Low Density Lipoprotein Calc. 73 mg/dL; Triglycerides 61 mg/dL; Very Low Density Lipoprotein 12 mg/dL (5-40); cholesterol:hdl ratio screen 2.52
== END | disposition home or self-care (01) ==
LOC: MFPLAB 11:28
PROVIDERS: PCP Family Medicine; Referring Provider Family Medicine; Visit Provider Family Medicine
DX: E78.00 Pure hypercholesterolemia, unspecified (principal)
CPT/HCPCS: 36415; 80061; 84450; 84460

== ENCOUNTER → 2024-08-14 | Outpatient (CLI) | payer BC, SELFPAY ==
--- NOTE | 2024-08-14 | EMB_PTH ---
PATIENT: PETER SERRANO LOC: [facility] U#:[id number] AGE/SX: 48/F ROOM: RE08/14/[address]: AUBREY Oglesby : 1975 BED: DIS: 08/14/2024 SPEC #: [id number] RECD: 08/14/24 16:43 STATUS: NADEEM JENNIFER #: [id number] JIMBO: 08/14/24 00:[address]: Arabella Vail NP DEPT: SURGICAL PATHOLOGY RECD BY: Jaxson Wilson ENTERED: 08/15/24 08:21 SP TYPE: ENDOM BX/C MARK DR: Dr. Madeline Christensen MD Tissues: A - Endometrium, NOS Procedures: Surgery Specimen Level IV HEADER OPERATION: Endometrial biopsy PRE-OP DIAGNOSIS: Abnormal uterine bleeding TISSUE SUBMITTED: A- Endometrial lining MICROSCOPIC DIAGNOSIS A. Endometrium, biopsy: * Few superficial fragments of shedding endometrium mixed with abundant blood clot - see note. * Note: A limited amount of superficial endometrium is present for evaluation. Clinical correlation is necessary to assess the adequacy of this sampling. MICROSCOPIC DESCRIPTION Slides are reviewed. GROSS DESCRIPTION A. Received in formalin in a container labeled with the patient's name, date of , and with the accompanying paperwork indicating, EMB are multiple red-brown fragments of soft tissue admixed with an abundance of blood clot material measuring 2.5 x 1.5 x 0.8 cm in aggregate. Submitted in toto in A1-2. [facility] 08-15-2024 CPT:38681
== END | disposition home or self-care (01) ==
LOC: LABSPEC 16:20
PROVIDERS: PCP Family Medicine; Referring Provider Nurse Practitioner Women's Health; Visit Provider Nurse Practitioner Women's Health
DX: N93.9 Abnormal uterine and vaginal bleeding, unspecified (principal)
CPT/HCPCS: 88305

== ENCOUNTER → 2024-10-07 | Outpatient (CLI) | payer BC, SELFPAY ==
[2024-10-07 10:37] LABS: Hematocrit 36.7 % (37-47); Hemoglobin 12.2 g/dL (12.0-15.0); Immature Granulocytes Count 0.010 X10^3/uL (0.0-0.0); Mean Corp Hgb Conc 33.2 g/dL (32-36); Mean Corpuscular Volume 89.1 fL (81-99); Mean Platelet Vol. 10.9 fl (6.2-12.0); NRBC Flagged by Analyzer 0 % (0-5); Platelet Count 322 K/mm3 (150-450); RBC Distribution Width CV 11.9 % (11.6-14.6); RBC Distribution Width SD 38.7 fl (35.1-43.9); Red Blood Count 4.12 M/mm3 (4.2-5.4); White Blood Count 5.6 K/mm3 (4.4-11.0)
== END | disposition home or self-care (01) ==
LOC: BWCLAB 10:04
PROVIDERS: PCP Family Medicine; Visit Provider Obstetrics & Gynecology
DX: N93.9 Abnormal uterine and vaginal bleeding, unspecified (principal)
CPT/HCPCS: 36415; 84443; 85025

== ENCOUNTER → 2024-10-07 | Outpatient (CLI) | payer BC, SELFPAY ==
--- NOTE | 2024-10-07 10:26 | BI_ITS ---
EXAM: SCRN MAMM (CAD)W/CARLOS BILAT DATE: 10/07/2024 CLINICAL HISTORY: F, Age 49 y/o , SCREENING FOR BREAST CANCER No family history. TECHNIQUE: SCRN MAMM (CAD)W/CARLOS BILAT COMPARISON: Prior exam(s) dated October 05, 2023.. FINDINGS: TISSUE DENSITY: There are scattered areas of fibroglandular density. Bilateral Breast Mammographic Findings: No significant masses, calcifications or other abnormalities are identified. Stable bilateral fat containing axillary lymph nodes. No suspicious masses, areas of developing architectural distortion, or suspicious calcifications. There has been no significant interval change. BI/SCRN MAMM (CAD)W/CARLOS BILAT IMPRESSION: Stable examination. OVERALL FINAL ASSESSMENT BI-RADS 2: BENIGN RECOMMENDATION: Routine annual follow-up in 1 Year A letter with findings and recommendations will be mailed to the patient. Reading Location: [id number]
== END | disposition home or self-care (01) ==
LOC: OPBI 10:24
PROVIDERS: PCP Family Medicine; Referring Provider Nurse Practitioner Women's Health; Visit Provider Nurse Practitioner Women's Health
DX: Z12.31 Encounter for screening mammogram for malignant neoplasm of breast (principal)
CPT/HCPCS: 77063; 77067